=== PATIENT | male | born 1995 | race Caucasian/White ===

== ENCOUNTER 2023-05-27 18:47 | Emergency (ER) | payer OTHER | END 2023-05-27 20:23 | disposition home or self-care (01) | LOC: DL.ED 18:47 | DX: S01.81XA Laceration without foreign body of other part of head, initial encounter (principal); M25.532 Pain in left wrist; Y04.2XXA Assault by strike against or bumped into by another person, initial encounter | CPT/HCPCS: 73110-LT; 99282; 99284 ==